=== PATIENT | male | born 1990 | race Caucasian/White ===

== ENCOUNTER 2020-08-07 19:10 | Inpatient (IN) | payer OTHER ==
[~2020-08-07] VITALS: Ht 175.3 cm; Wt 68.0 kg
--- NOTE | ~2020-08-07 | OP ---
[address] [address] OPERATIVE REPORT Name: KENIA HUTCHINSON Room: [address] IN [facility]#: [id number] Admission: 08/08/20 Attend Phys: Lee Torres Discharge: Date of : 89 Report #: [id number] THIS REPORT FOR: //name// cc: DORCAS - Porsha family physician/PCP DORCAS - No family physician/PCP ~ CC: [facility] physician/PCP Avila Deng DICTATED BY: Sawyer Lu DO DATE OF SERVICE: 08/08/2020 PREOPERATIVE DIAGNOSIS: Right, closed, displaced intra-articular distal tibia and fibula fracture. POSTOPERATIVE DIAGNOSIS: Right, closed, displaced intra-articular distal tibia and fibula fracture. PROCEDURE PERFORMED: Closed reduction of right distal tibia and fibula fracture with application of ankle spanning external fixator. SURGEON: Delmer Mills DO PLACEMENT MANAGER: Sawyer Lu DO ANESTHESIA: Monitored anesthesia care with a regional nerve block by Anesthesia, popliteal block. ESTIMATED BLOOD LOSS: 2 mL. DRAINS: None. SPECIMENS: None. COMPLICATIONS: None. CONDITION: The patient is stable. DISPOSITION: PACU, then return to Med/Surg floor. ANTIBIOTICS: 2 grams Ancef IV piggyback prior to procedure. INDICATIONS FOR PROCEDURE: The patient is a very pleasant 29-year-old male who was participating in a [employer] event last night. He sustained an injury to his right ankle at that time and presented to [facility] where x-rays confirmed distal tibia and fibula fractures. [place] [address] OPERATIVE REPORT Name: KENIA HUTCHINSON Room: [address] IN [facility]#: [id number] Admission: 08/08/20 Attend Phys: Lee Torres Discharge: Date of : 89 Report #: [id number] further observation. This morning we discussed with the patient plan for temporary fixation of the fracture and reduction using external fixation and closed reduction technique. We discussed all the risks, benefits, indications, and complications associated with this including but not limited to infection, wound healing complications, neurovascular injury, posttraumatic arthritis, need for repeat surgery, DVT, PE, complication of anesthesia as well as other possibilities and the patient agreed and wanted to proceed with surgery. DESCRIPTION OF PROCEDURE: I met with the patient in the preoperative suite and the correct right ankle was marked. Informed him that this was once again just a temporary fixation of his fracture and that he will likely need a repeat surgery for definitive fixation down the road once the soft tissue swelling allows. Consent was signed. He was then transferred to the operating room and placed supine on a well-padded table. He had previously had the popliteal block by Anesthesia and was given monitored anesthesia care throughout the procedure. A bump was positioned in the right hip and a bone foam was utilized. At this point, the right lower extremity was sterilely prepped and draped in standard fashion. Performed a surgical timeout, indicating correct patient, operative site and procedure performed and the all in the room were in agreement and we elected to proceed. We began the incision by making 2 small incisions on the proximal tibia at the location of the two tibial pins. Skin was incised with 15 blade. Dissection was taken down to the level of the bone. The 5 mm pin sites were predrilled and then the 5 mm pins were then placed bicortically. C-arm confirmed adequate position of the pins. Next, we turned our attention to the calcaneal pin and C-arm was utilized in order to verify correct placement in the calcaneus. Skin was incised with a 15 blade scalpel. Dissection was taken down to the level of bone with a hemostat. The calcaneal pin was passed in standard fashion which was going from medial to lateral. At this point, assembled the external fixator with the couplings . With everything assembled, the reduction maneuver was performed reducing the distal tibia fracture and obtaining appropriate length. Once the reduction was held and the ____ clamps were then tightened securing the fixation. These were further tightened with a wrench. Once all of the couplings were completely fastened, final intraoperative fluoroscopy images were taken and saved. Wounds were thoroughly cleansed with saline and then dressing consisted of Xeroform, 4 x 4 gauze, Kerlix and an Marshall wrap. Needle and sponge counts were correct x 2 at the end of procedure. The patient tolerated the procedure well and was taken to PACU in stable condition. POSTOPERATIVE COURSE: The patient will begin on Lovenox for DVT prophylaxis while inpatient. His compartments were soft throughout the procedure and afterwards. He is neurovascularly intact. He will follow up in clinic upon discharge for further evaluation of soft tissue until he is appropriate to undergo definitive fixation. [address] [address] OPERATIVE REPORT Name: KENIA HUTCHINSON Room: [facility]-2 ADM IN M.R.#: [id number] Admission: 08/08/20 Attend Phys: Lee Torres Discharge: Date of : 89 Report #: [id number] ATTESTATION: Dr. Mills was present throughout the entirety of the case. By: [id number] Mills DO /nt
[~2020-08-07 19:10] MED LIST: NOHOMEMEDICATIONS; PENICILLIN VK500 MG PO; ZOFRAN ODT4 MG PO
[2020-08-07 19:40] VITALS: BP 141/82
[2020-08-08 00:47] LABS: HEMATOCRIT 38.7 % (42.0-52.0); MCHC 33.6 g/dL (28.0-37.0); MCV 95.3 fL (80.0-100.0); MPV 8.1 fl. (7.2-11.1); RBC 4.06 mil/uL (4.50-6.00); RDW-CV 13.2 % (10.5-14.5)
[2020-08-08 01:02] LABS: APTT 24.1 Seconds (25.0-31.3); PROTIME 10.2 Seconds (9.20-11.50)
[2020-08-08 01:10] LABS: ALBUMIN 4.1 g/dL (3.4-5.0); CALCIUM 8.9 mg/dL (8.5-10.1); POTASSIUM 4.3 mmol/L (3.5-5.1); TOTAL BILIRUBIN 0.6 mg/dL (<0.1-1.0); TOTAL PROTEIN 7.2 g/dL (6.4-8.2)
[2020-08-08 02:24] VITALS: BP 148/76
[2020-08-08 06:24] VITALS: BP 131/75
[2020-08-08 10:21] VITALS: BP 105/75
[2020-08-08 10:37] VITALS: BP 130/75
[2020-08-08] MEDS ORDERED: SERTRALINE HCL100 MG PO (11:03)
[2020-08-08] MEDS ORDERED: SEROQUEL 100 M100 M1 PO (11:04)
[2020-08-08 20:50] VITALS: BP 106/43
[2020-08-09] VITALS (7 sets, daily range): BP systolic 99–120; BP diastolic 37–73
[2020-08-09 05:01] LABS: HEMATOCRIT 34.9 % (42.0-52.0); HEMOGLOBIN 11.7 gm/dL (14.0-18.0); MCH 32.6 pg (26.0-34.0); MCHC 33.6 g/dL (28.0-37.0); RBC 3.6 mil/uL (4.50-6.00); RDW-CV 13.3 % (10.5-14.5); WBC 11.7 thou/uL (4.0-11.0)
[2020-08-09 05:44] LABS: CALCIUM 8.4 mg/dL (8.5-10.1); CREATININE 0.8 mg/dL (0.6-1.3); MAGNESIUM 1.7 mg/dL (1.8-2.4); POTASSIUM 3.8 mmol/L (3.5-5.1)
[2020-08-10 00:04] VITALS: BP 112/61
[2020-08-10 04:02] LABS: HEMATOCRIT 33.1 % (42.0-52.0); HEMOGLOBIN 11.2 gm/dL (14.0-18.0); MCH 32.5 pg (26.0-34.0); MCHC 33.8 g/dL (28.0-37.0); MCV 96.4 fL (80.0-100.0); MPV 8.6 fl. (7.2-11.1); RBC 3.43 mil/uL (4.50-6.00); WBC 8.8 thou/uL (4.0-11.0)
[2020-08-10 04:33] LABS: ALBUMIN 3.1 g/dL (3.4-5.0); CALCIUM 8.1 mg/dL (8.5-10.1); CREATININE 0.8 mg/dL (0.6-1.3); MAGNESIUM 1.6 mg/dL (1.8-2.4); POTASSIUM 3.6 mmol/L (3.5-5.1); TOTAL BILIRUBIN 0.7 mg/dL (<0.1-1.0); TOTAL PROTEIN 6.3 g/dL (6.4-8.2)
[2020-08-10 08:20] VITALS: BP 103/61
[2020-08-10 15:44] VITALS: BP 125/71
[2020-08-11 08:07] VITALS: BP 123/61
[2020-08-11] MEDS ORDERED: TRAMADOL 50 MG50 MG PO (08:07)
[2020-08-11] MEDS ORDERED: LIDOPATCH1 EACH TOP (08:07)
[2020-08-11] MEDS ORDERED: CELEBREX 200 M200 M1 PO (08:07)
[2020-08-11] MEDS ORDERED: OXYCODONE HCL 55 MG PO (08:07)
[2020-08-11 10:38] VITALS: BP 123/61
[2020-08-11 11:31] VITALS: BP 123/61
== END 2020-08-11 11:47 | disposition home or self-care (01) | DRG 494 ==
LOC: M.ERS 19:10 → M.TBA-ER 22:24 → M.ORTHSURG 08-08 18:25
PROVIDERS: Internal Medicine; Personal Emergency Response Attendant; ADMIT Internal Medicine; ATTEND Internal Medicine
PROC: 0QSJ35Z Reposition Right Fibula with External Fixation Device, Percutaneous Approach (ICD-10-PCS; principal; 2020-08-08)
PROC: 0SSFXZZ Reposition Right Ankle Joint, External Approach (ICD-10-PCS; principal; 2020-08-08)
PROC: 0QSG35Z Reposition Right Tibia with External Fixation Device, Percutaneous Approach (ICD-10-PCS; principal; 2020-08-08)
DX: S82.91XA Unspecified fracture of right lower leg, initial encounter for closed fracture (principal); D72.829 Elevated white blood cell count, unspecified; F17.210 Nicotine dependence, cigarettes, uncomplicated; W18.39XA Other fall on same level, initial encounter; Z79.891 Long term (current) use of opiate analgesic; Z79.899 Other long term (current) drug therapy; Z79.2 Long term (current) use of antibiotics; Z88.2 Allergy status to sulfonamides; Y93.89 Activity, other specified; Y92.89 Other specified places as the place of occurrence of the external cause; Y99.8 Other external cause status

== ENCOUNTER 2020-09-01 11:06 | Observation (INO) | payer OTHER ==
[~2020-09-01] VITALS: Ht 172.7 cm; Wt 68.0 kg
--- NOTE | ~2020-09-01 | OP ---
[address] [address] OPERATIVE REPORT Name: KENIA HUTCHINSON Room: [address] [place]#: [id number] Admission: 09/01/20 Attend Phys: Lee Torres Discharge: 09/02/20 Date of : 89 Report #: [id number] THIS REPORT FOR: //name// cc: DORCAS - Porsha family physician/PCP DORCAS Story family physician/PCP ~ CC: [facility] physician/PCP Kenia Deng DATE OF SERVICE: 09/01/2020 PREOPERATIVE DIAGNOSIS: 1. Right intra-articular distal tibial fracture (pilon). 2. Comminuted right distal one-third fibular shaft fracture. 3. Status post external fixation, right ankle. OPERATIONS PERFORMED: 1. Removal of external fixation under anesthesia. 2. Open reduction and internal fixation, right intra-articular distal tibia fracture (pilon). 3. Open reduction and internal fixation, comminuted right distal one-third fibular shaft fracture. SURGEON: Kenia Choe DO ASSISTANTS: 1. Tacos Lu DO 2. Kvng Read DO ANESTHESIA: General. ANTIBIOTICS: Ancef. IV FLUIDS: 2400 mL lactated Ringer's. ESTIMATED BLOOD LOSS: 200 mL. COMPLICATIONS: None. SPECIMENS: None. DRAINS: None. CONDITION OF PATIENT: Stable to PACU. IMPLANTS: Synthes T plate for posterior malleolus with 3.5 cortical screws at [facility] [address] [place] [address] OPERATIVE REPORT Name: EVANGELINAKENIA Annmarie Room: [address] Caitie Santoro#: [id number] Admission: 09/01/20 Attend Phys: Lee Torres Discharge: 09/02/20 Date of : 89 Report #: [id number] the apex proximally, 3.5 lag screw placed outside the plate, one-third tubular plate for fibula with 3.5 cortical screws, anterolateral locking plate for tibia, locking screws distally with the exception of one 3.5 cortical screw placed to suck to bone. The remainder of screw is 3.5 cortical. DESCRIPTION OF PROCEDURE: I marked the right lower extremity in the presence of operative team members. Everyone agreed correct. He was taken back to the operative suite. General anesthetic administered, removed the external fixation uneventfully, placed into the prone position, well-padded and secured with a well-padded tourniquet placed proximally on the right lower extremity. The right lower extremity was sterilely prepped and draped in standard fashion. Timeout performed indicating correct patient, procedure, site, antibiotics and that implants were present and sterile. All team members agreed. Esmarched the extremity and insufflated the tourniquet to 280 mmHg. Posterolateral approach utilized. Scalpel through skin, careful soft tissue dissection down visualizing sterile structures and protecting. Incised through fascia and fascia then worked elevating the FHL off the deep aspect and protecting neurovascular structures. Cleaned off the fracture site. This was visualized. We were able to get a good reduction, confirmed on C-arm, pinned into position, placed a lag screw, 3.5 by technique. This compressed the joint nicely. T plate for posterior malleolus placed staying at the apex of the fractures, drilled and placed 2 cortical screws, 3.5 mm in nature, excellent purchase, placed in an antiglide buttress mode. C-arm showed excellent placement of hardware and fracture reduction posteriorly. We worked on the posterior aspect of the fibula. Restored length, alignment and rotation as confirmed by direct visualization and C-arm, placed it posteriorly, placed one-third tubular. Drilled, measured and placed 3 cortical screws proximally in the same distally. Let down tourniquet, total time 54 minutes. Hemostasis was maintained. Foot was warm and well perfused and we could feel palpable pedal pulses. Irrigated with normal saline and confirmed hemostasis, closed the fascial layer with 0 Vicryl, subcutaneous 2-0 Monocryl, skin with 3-0 nylon modified Allgower-Donati interrupted. He was transferred to the supine position appropriately. The extremity was then reprepped and draped sterilely in standard fashion, confirmed that we were again on the correct extremity and now doing the anterior-based procedure. Marked out for a direct anterior approach. Esmarched extremity and insufflated the tourniquet to 280 mmHg. Scalpel through skin, full thickness flaps, looking and protecting the superficial peroneal nerve. Incised through fascia and retinaculum, protecting the anterior neurovascular bundle throughout the case. Visualized our fracture site, reduced anatomically, confirmed on C-arm, placed our anterolateral plate, suck to bone proximally with a 3.5 cortical screw in the same for distally. Brought in C-arm, confirmed appropriate placement of the plate and excellent reduction of fracture. Drilled under C-arm the remaining locking screws distally, cortical screws proximally. All hardware in place. At this time, took the foot through range of motion, functional throughout dorsiflexion, plantar flexion, supination, pronation, abduction, adduction with no instability and that it was overall functional, [place] [address] OPERATIVE REPORT Name: KENIA HUTCHINSON Room: [address]#: [id number] Admission: 09/01/20 Attend Phys: Lee Torres Discharge: 09/02/20 Date of : 89 Report #: [id number] little bit of stiff, that is to be expected after being in the external fixation. Final C-arm images showed excellent placement of the hardware and fracture reduction. Dismissed C-arm after saving the images. Let down tourniquet, total time 51 minutes. Maintained hemostasis. Palpable pedal pulses. Foot warm and well perfused. No injury to neurovascular structures. Irrigated again with normal saline and confirmed hemostasis. Closed the fascia and extensor retinaculum with 0 Vicryl. Perforated the fascia to help close and also make more relaxing. Compartments were soft and compressible. Subcutaneous closed with 2-0 Monocryl, buried deep skin with 3-0 nylon modified Allgower-Donati interrupted. Debriefing performed confirming procedure, blood loss and that all counts were correct and final. All team members agreed. Well-padded sterile splint applied with the ankle in the neutral position. He was extubated and taken to PACU in stable. POSTOPERATIVE COURSE AND EVALUATION: I spoke with his father. Addressed questions, he had the satisfaction. He was very thankful for my time and efforts. The patient was resting in PACU with stable vital signs, pain controlled. No pain out of proportion to passive stretching. No signs of DVT, neurovascularly intact. Nonweightbearing. DVT prophylaxis, pharmacological and mechanical as directed. Discontinue smoking any tobacco or nicotine products. Call anytime with questions or concerns. Follow up 2 weeks, sooner if need be. COVID protocol followed at all times. By: [id number] Choe DO /nt
[~2020-09-01 11:06] MED LIST changes: +CELEBREX 200 M200 M1 PO; +LIDOPATCH1 EACH TOP; +OXYCODONE HCL 55 MG PO; +SEROQUEL 100 M100 M1 PO; +SERTRALINE HCL100 MG PO; +TRAMADOL 50 MG50 MG PO
[2020-09-01] MEDS ORDERED: OXYCODONE HCL 55 MG PO (18:19)
[2020-09-01] MEDS ORDERED: ASPIRIN325 PO (18:20)
[2020-09-01 22:00] VITALS: BP 124/60
[2020-09-02] VITALS: BP 115/62
[2020-09-02 04:00] VITALS: BP 106/46
[2020-09-02 04:20] LABS: HEMATOCRIT 32.2 % (42.0-52.0)
[2020-09-02 08:00] VITALS: BP 120/80
[2020-09-02] MEDS ORDERED: NEURONTIN100 MG PO (09:00)
[2020-09-02] MEDS ORDERED: ROBAXIN 750 MG750 MG PO (14:28)
[2020-09-02] MEDS ORDERED: TYLENOL EXTRA500 MG PO (14:29)
[2020-09-02 16:44] VITALS: BP 121/75
== END 2020-09-02 18:50 | disposition home or self-care (01) ==
LOC: M.SUR 11:06 → M.TBA 18:05 → M.2W 18:05
PROVIDERS: Orthopaedic Surgery; ADMIT Internal Medicine; ATTEND Internal Medicine
DX: S82.891A Other fracture of right lower leg, initial encounter for closed fracture (principal); X58.XXXA Exposure to other specified factors, initial encounter; Y93.89 Activity, other specified; Y92.89 Other specified places as the place of occurrence of the external cause; Y99.8 Other external cause status